=== PATIENT | female | born 1995 | race Two or more races ===

== ENCOUNTER 2017-08-08 14:16 | Inpatient (IN) | payer BC ==
[~2017-08-08] VITALS: Ht 165.1 cm; Wt 69.0 kg
[2017-08-08 14:17] VITALS: Ht 165.1 cm; Wt 69.0 kg
[2017-08-08 14:56] LABS: BASOPHIL % 0.8 % (0-2); PLATELET COUNT 232 x10^3mcL (130-400); RED CELL DISTRIBUTION WIDTH 12.4 % (11.5-14.5)
[2017-08-08 15:05] LABS: CALCIUM 8.3 mg/dL (8.5-10.1); CARBON DIOXIDE 25.9 mmol/L (21-32); CHLORIDE SERUM 106 mmol/L (98-107); CREATININE SERUM 0.8 mg/dL (0.6-1.0); GFR1 > 60 mL/min; GLUCOSE SERUM 112 mg/dL (74-106); POTASSIUM SERUM 3.9 mmol/L (3.5-5.1); SODIUM SERUM 143 mmol/L (136-145)
[2017-08-08 15:12] LABS: ALBUMIN 3.5 g/dL (3.4-5.0); ALKALINE PHOSPHATASE 54 U/L (46-116); ALT/SGPT 17 U/L (14-59); AST/SGOT 15 U/L (15-37); BILIRUBIN TOTAL 0.36 mg/dL (0.20-1.00); CHOLESTEROL 152 mg/dL (<200); CHOLESTEROL/HDL RATIO 2.1; HDL CHOLESTEROL 71 mg/dL (40-60); LIPASE 133 IU/L (73-393); TOTAL PROTEIN, SERUM 7.5 g/dL (6.4-8.2); TRIGLYCERIDES 74 mg/dL (<150)
[2017-08-08 15:20] LABS: T3 TOTAL 1.49 ng/mL
[2017-08-08 15:22] LABS: FREE T4 1.13 ng/dL (0.76-1.46); T4(THYROXINE) 13.2 ug/dL (4.7-13.3)
[2017-08-08 15:52] LABS: UA SPECIFIC GRAVITY <=1.005 (1.005-1.035); microscopic required? YES; urine erythrocyte NEGATIVE (NEGATIVE)
[2017-08-08 17:12] LABS: MAGNESIUM 1.9 mg/dL (1.8-2.4); PHOSPHOROUS 3.9 mg/dL (2.5-4.9)
[2017-08-08 17:19] VITALS: BP 106/55
[2017-08-08 21:29] VITALS: BP 103/56
[2017-08-09 05:32] VITALS: BP 103/55
[2017-08-09 06:34] LABS: BASOPHIL % 0.7 % (0-2); PLATELET COUNT 223 x10^3mcL (130-400); RED CELL DISTRIBUTION WIDTH 12.9 % (11.5-14.5)
[2017-08-09 06:47] LABS: CALCIUM 8.5 mg/dL (8.5-10.1); CARBON DIOXIDE 22.7 mmol/L (21-32); CHLORIDE SERUM 108 mmol/L (98-107); CREATININE SERUM 0.7 mg/dL (0.6-1.0); GFR1 > 60 mL/min; GLUCOSE SERUM 106 mg/dL (74-106); PHOSPHOROUS 2.9 mg/dL (2.5-4.9); SODIUM SERUM 141 mmol/L (136-145)
[2017-08-09 09:58] VITALS: BP 101/51
[2017-08-09] MEDS ORDERED: METOPROLOL TART25 M1 PO (11:22)
[2017-08-09 12:23] VITALS: BP 110/61
[2017-08-09 13:08] VITALS: BP 110/61
== END 2017-08-09 13:39 | disposition home or self-care (01) | DRG 281 ==
LOC: ED 14:16 → DU 16:23
PROVIDERS: Family Medicine; Specialist
DX: I21.4 Non-ST elevation (NSTEMI) myocardial infarction (principal); I47.1 Supraventricular tachycardia; Z53.29 Procedure and treatment not carried out because of patient's decision for other reasons
CPT/HCPCS: 83880; 84439; J0153; J7030; Q0092